=== PATIENT | female | born 1945 | race Caucasian/White ===

== ENCOUNTER 2019-02-07 16:50 | Emergency (ER) | payer MEDICARE, OTHER ==
[2019-02-07 17:01] VITALS: RESP 14; TEMP 96
[2019-02-07 17:40] LABS: BASOPHILS % (AUTO) 1 % (0-3); EOSINOPHILS % (AUTO) 3 % (0-9); HEMATOCRIT 37 % (35-47); HEMOGLOBIN 12.4 gm/dl (12.0-15.5); LYMPHOCYTES % (AUTO) 17.8 % (10-50); MEAN CORPUSCULAR HGB CONC 33.3 gm/dl (32.0-36.0); MEAN CORPUSCULAR VOLUME 93 fL (81-99); MONOCYTES % (AUTO) 8.9 % (0-12); NEUTROPHILS % (AUTO) 68.8 % (37-80)
[2019-02-07 17:54] LABS: ALBUMIN 4.1 gm/dl (3.4-5.0); BILIRUBIN,TOTAL 0.3 mg/dl (0.2-1.0); CALCIUM 9.7 mg/dl (8.5-10.1); CARBON DIOXIDE 27.7 mEq/L (21-32); CREATININE 1.85 mg/dl (0.60-1.00); POTASSIUM 4.3 mMol/L (3.5-5.1); TOTAL PROTEIN 7.3 gm/dl (6.4-8.2)
[2019-02-07] MEDS ORDERED: DEXTROSE/SALINE 0.9% 1,000 ML IV ONE (18:07)
[2019-02-07] MEDS ORDERED: DEXTROSE 50% 1 VIAL SOL IV ONE ×2 (18:07→18:08)
[2019-02-07 19:21] LABS: APPEARANCE,URINE Cloudy; BILIRUBIN,URINE NEGATIVE (NEGATIVE); COLOR,URINE Yellow; GLUCOSE, URINE (UA) NEGATIVE (NEGATIVE); KETONES,URINE NEGATIVE (NEGATIVE); LEUKOCYTE ESTERASE ,URINE 1+ (NEGATIVE); NITRATE,URINE POSITIVE (NEGATIVE); OCCULT BLOOD,URINE NEGATIVE (NEG-TRACE); UROBILINOGEN,URINE 0.2 (0.2-1.0 EU)
[2019-02-07 20:00] LABS: EPITHELIAL CELLS NEGATIVE (SQUAMOUS); RBC,URINE NEG (0-3AV/HPF)
[2019-02-07 20:01] LABS: BACTERIA 1+ (< 1+); CRYSTALS NEGATIVE (0-3 AVE/HPF)
[2019-02-07 20:22] VITALS: BP 123/60; PULSE 72; O2SAT 96
== END 2019-02-07 20:15 | disposition home or self-care (01) | DRG 639 ==
LOC: ED 16:50
DX: E11.649 Type 2 diabetes mellitus with hypoglycemia without coma (principal); Z79.4 Long term (current) use of insulin; Z79.899 Other long term (current) drug therapy
CPT/HCPCS: 36415; 80053; 81001; 82962; 85025; 87077; 87088; 87186; 96365; 96366; 96374; 99284; 99285